=== PATIENT | female | born 1955 | race American Indian/Alaskan Native ===

== ENCOUNTER 2018-08-15 21:23 | Inpatient (IN) | payer OTHER ==
[2018-08-15 22:17] LABS: Basophils # (Auto) 0.1 K/mm3 (0.0-0.1); Basophils % (Auto) 1.1 % (0.0-1.8); Eosinophils # (Auto) 0.1 K/mm3 (0.0-0.4); Eosinophils % (Auto) 2.1 % (0.0-4.3); Hematocrit 39.8 % (30.3-42.9); Hemoglobin 13.2 gm/dl (10.1-14.3); Lymphocytes # (Auto) 2.5 K/mm3 (1.2-5.4); Lymphocytes % (Auto) 41.4 % (13.4-35.0); Mean Corpuscular HGB Conc 33 % (30-34); Mean Corpuscular Volume 88 fl (79-97); Monocytes # (Auto) 0.4 K/mm3 (0.0-0.8); Monocytes % (Auto) 6.8 % (0.0-7.3); Platelet Count 310 K/mm3 (140-440); Red Blood Count 4.51 M/mm3 (3.65-5.03); Red Cell Distribution Width 15.5 % (13.2-15.2)
[2018-08-15 22:30] LABS: BUN/Creatinine Ratio 21; Blood Urea Nitrogen 15 mg/dL (7-17); Calcium 9.9 mg/dL (8.4-10.2); Hemolysis Index 5
--- NOTE | 2018-08-15 23:34 | XRay Report ---
PROCEDURE: XR CHEST ROUTINE 2V TECHNIQUE: PA and lateral chest radiographs were obtained. HISTORY: Chest Pain COMPARISONS: None. FINDINGS: Heart: Normal. Mediastinum/Vessels: Normal. Lungs/Pleural space: Normal. Bony thorax: No acute osseous abnormality. IMPRESSION: Normal examination. This document is electronically signed by Rodney Crowell MD., August 15 2018 11:31:50 PM ET
[2018-08-16] MEDS ORDERED: NACL 0.9% 500 ML 500 ML IV ONE (00:53)
--- NOTE | 2018-08-16 00:53 | Emergency Department Report ---
ED Neuro Deficit HPI - General Chief Complaint: Chest Pain Stated Complaint: DIZZY/STUMBLING ALL DAY/CHEST PAIN Time Seen by Provider: 08/16/18 00:32 Source: patient, RN notes reviewed Mode of arrival: Ambulatory Limitations: No Limitations - History of Present Illness Initial Comments: This is a pleasant 63-year-old female who is not known to this provider previously. She has a history of hypertension and hysterectomy. Primary care physician: Lucy Norwood It is currently 1:20 AM Friday morning. Patient presents with a complaint of waking up, yesterday, Friday morning, with a complaint of dizziness and unsteady gait. She first noticed these at 10:00 AM on Friday. The symptoms constant, worsens with physical exertion, decreases with rest and sitting down. She reports her last known well time is Friday evening upon going to sleep. The patient also reports resolved binocular blurry vision, irregularity, now resolved, which started at 3:00 PM on the preceding day. She also reports central chest pressure, which radiates to her left upper extremity, which she has not had in the past. She denies severe headache, neck pain, abdominal pain, lower extremity pain, weakness, numbness. She denies bladder or bowel retention, incontinence, hematemesis, bright red blood per rectum. She denies pulmonary embolus, DVT risk factors. -: Sudden Location: ataxia Presenting Symptoms: Absent: Weak/Paralyzed One Side, Sudden, Severe Headache, Blurred/Loss of Vision, Facial Droop/Numbness, Unable to Speak Clearly, Altered Mental Status History of same: No Place: home Severity: moderate Quality: other Improves With: other Worsens With: other On Anticoagulants: No Associated Symptoms: chest pain, nausea/vomiting, vertigo - Related Data Allergies/Adverse Reactions: Allergies Allergy/AdvReac Type Severity Reaction Status Date / Time latex Allergy Hives Verified 08/15/18 21:25 ED Review of Systems ROS: Stated complaint: DIZZY/STUMBLING ALL DAY/CHEST PAIN Other details as noted in HPI Constitutional: malaise. denies: fever, weakness Eyes: vision change ENT: denies: epistaxis Respiratory: denies: cough Cardiovascular: chest pain Gastrointestinal: nausea. denies: vomiting Genitourinary: denies: dysuria Musculoskeletal: denies: back pain, arthralgia, myalgia Neurological: abnormal gait, vertigo. denies: headache, weakness, numbness, paresthesias, confusion Psychiatric: anxiety ED Past Medical Hx - Past Medical History Previous Medical History?: Yes Hx Hypertension: Yes - Surgical History Additional Surgical History: hysterectomy - Social History Smoking Status: Never Smoker Substance Use Type: None ED Neuro Physical Exam - General Limitations: No Limitations General appearance: alert, in no apparent distress Suspected Stroke: Yes - Head Head exam: Present: atraumatic, normocephalic - Eye Eye exam: Present: normal appearance, PERRL, EOMI, other (visual acuity intact to finger counting, color perception, reading at a close distance). Absent: nystagmus - ENT ENT exam: Present: normal exam, normal orophraynx, mucous membranes moist, normal external ear exam - Neck Neck exam: Present: normal inspection, full ROM. Absent: tenderness, meningismus - Respiratory Respiratory exam: Present: normal lung sounds bilaterally. Absent: respiratory distress - Cardiovascular Cardiovascular Exam: Present: regular rate, normal rhythm, normal heart sounds. Absent: bradycardia, tachycardia, irregular rhythm, systolic murmur, diastolic murmur, rubs, gallop - GI/Abdominal GI/Abdominal exam: Present: soft. Absent: distended, tenderness, guarding, rebound, rigid, pulsatile mass - Extremities Exam Extremities exam: Present: normal inspection, full ROM, other (2+ pulses noted in the bilateral upper, lower extremities. Compartments soft. No long bony tenderness. The pelvis is stable.). Absent: pedal edema, joint swelling, calf tenderness - Back Exam Back exam: Present: normal inspection, full ROM. Absent: tenderness, CVA tenderness (R), paraspinal tenderness, vertebral tenderness - Neurological Exam Neurological exam: Present: alert (there is no pass pointing. There is normal [id number].), oriented X3, CN II-XII intact, abnormal gait (walks with a broad-based gait. Positive Romberg examination. Unable to perform tandem examination, gait.), other (Extraocular movements intact. Tongue midline. No facial droop. Facial sensation intact to light touch in the V1, V2, V3 distribution bilaterally. 5 and 5 strength in 4 extremities.. Sensation is intact to light touch in 4 extremities.). Absent: motor sensory deficit - NIHSS Assessment Interval: Baseline 1a. Level of Consciousness: alert/keenly responsive 1b. LOC Questions: answers both correctly 1c. LOC Commands: performs tasks correctly 2. Best Gaze: normal 3. Visual: no visual loss 4. Facial Palsy: normal symmetrical movement 5b. Motor Arm Right: no drift 5a. Motor Arm Left: no drift 6a. Motor Leg Left: no drift 6b. Motor Leg Right: no drift 7. Limb Ataxia: absent 8. Sensory: normal 9. Best Language: no aphasia 10. Dysarthria: normal 11. Extinction/Inattention: no abnormality Total Score: 0 Stroke Severity: No Stroke Symptoms - Psychiatric Psychiatric exam: Present: normal affect, normal mood - Skin Skin exam: Present: warm, dry, intact, normal color. Absent: rash ED Course Vital Signs 08/15/18 08/16/18 08/16/18 21:36 00:57 01:16 Temperature 98.7 F Pulse Rate 84 87 91 H Respiratory 16 19 13 Rate Blood Pressure Blood Pressure 160/95 [Right] O2 Sat by Pulse 100 Oximetry 08/16/18 08/16/18 01:30 01:45 Temperature Pulse Rate 81 82 Respiratory 11 L 13 Rate Blood Pressure 151/88 153/90 Blood Pressure [Right] O2 Sat by Pulse Oximetry - Reevaluation(s) Reevaluation #1: 08/16/18 01:22 Differential diagnosis, including but not limited to: Stroke, ischemic versus hemorrhagic, aortic dissection, acute coronary syndrome, GERD, gastritis, hiatal hernia Assessment and plan: 63-year-old female who presents with wake-up neurologic symptoms, therefore not a TPA candidate. However, patient is presenting within the 24-hour window of waking up at symptoms, and we will therefore manage her as a code stroke. An emergent CT scan of the brain, and angiogram of the head and neck have been ordered. I doubt aortic disease as the patient does not have significant hypertension, and has equal pulses in her upper, lower extremities, and also has an unremarkable x-ray of the chest. Nevertheless, I have requested that the electrophysiology technologist scan from the proximal aorta, as part of protocol for the angiogram of the neck. The patient endorses no abdominal pain, no back pain, and no extremity complaints at this time, with the exception of her left upper extremity pain. We will reassess after her total point have resulted. 08/16/18 01:43 Reevaluation #2: 08/16/18 01:[address] scan of the brain negative for acute disease. Awaiting angiogram interpretation. Reevaluation #3: 08/16/18 04:[address] angiogram of the head and neck is negative for acute disease. Patient noted to be walking with assistance. Recommended admission to the hospital, for presumed subacute stroke evaluation and chest pain risk stratification. The patient is amenable to this plan of care. The Hospital physician, Dr. Schuler, has accepted the patient to the medical service. - Lab Data Result diagrams: 08/15/18 21:53 08/15/18 21:53 Lab Results 08/15/18 08/15/18 Range/Units 21:53 21:53 WBC 6.0 (4.5-11.0) K/mm3 RBC 4.51 (3.65-5.03) M/mm3 Hgb 13.2 (10.1-14.3) gm/dl Hct 39.8 (30.3-42.9) % MCV 88 (79-97) fl MCH 29 (28-32) pg MCHC 33 (30-34) % RDW 15.5 H (13.2-15.2) % Plt Count 310 (140-440) K/mm3 Lymph % (Auto) 41.4 H (13.4-35.0) % [place] % (Auto) 6.8 (0.0-7.3) % Eos % (Auto) 2.1 (0.0-4.3) % Baso % (Auto) 1.1 (0.0-1.8) % Lymph # 2.5 (1.2-5.4) K/mm3 [place] # 0.4 (0.0-0.8) K/mm3 Eos # 0.1 (0.0-0.4) K/mm3 Baso # 0.1 (0.0-0.1) K/mm3 Seg Neutrophils % 48.6 (40.0-70.0) % Seg Neutrophils # 2.9 (1.8-7.7) K/mm3 Sodium 141 (137-145) mmol/L Potassium 4.3 (3.6-5.0) mmol/L Chloride 102.6 (98-107) mmol/L Carbon Dioxide 28 (22-30) mmol/L Anion Gap 15 mmol/L BUN 15 (7-17) mg/dL Creatinine 0.7 (0.7-1.2) mg/dL Estimated GFR > 60 ml/min BUN/Creatinine Ratio 21 % Glucose 110 H (65-100) mg/dL Calcium 9.9 (8.4-10.2) mg/dL Troponin T < 0.010 (0.00-0.029) ng/mL Vital Signs 08/15/18 08/16/18 08/16/18 21:36 00:57 01:16 Temperature 98.7 F Pulse Rate 84 87 91 H Respiratory 16 19 13 Rate Blood Pressure 160/95 [Right] O2 Sat by Pulse 100 Oximetry - EKG Data -: EKG Interpreted by [facility] EKG shows normal: sinus rhythm Rate: normal When compared to previous EKG there are: previous EKG unavailable 08/16/18 01:24 Sinus rhythm, 86 bpm, normal axis, normal intervals, left ventricular hypertrophy, atrial enlargement, nonspecific T-wave abnormalities, abnormal EKG, not consistent with ST elevation myocardial infarction. - Radiology Data Radiology results: report reviewed, image reviewed - Core Measures Measure Exclusions: not indicated - Thrombolytic Inclusion/Exclusion Thrombolytic Exclusion Criteria: Onset of Symptoms Unknown Critical care attestation.: If time is entered above; I have spent that time in minutes in the direct care of this critically ill patient, excluding procedure time. ED Disposition Clinical Impression: Ataxia, Chest pain Disposition: OP ADMIT IP TO THIS HOSP Is pt being admited?: Yes Does the pt Need Aspirin: Yes Condition: Stable Instructions: Chest Pain (ED) Referrals: PRIMARY CARE, [Primary Care Provider] - 3-5 Days
--- NOTE | 2018-08-16 01:31 | Cat Scan Report ---
PROCEDURE: CT HEAD/BRAIN WO CON TECHNIQUE: Computerized tomography of the head was performed without contrast material. CT DOSE LENGTH PRODUCT: mGycm HISTORY: cva ataxia, cp COMPARISONS: None . FINDINGS: Skull and scalp: Normal . Paranasal sinuses: Normal . Ventricles and subarachnoid spaces: Normal . Cerebrum: No evidence of hemorrhage, acute infarction or mass . Cerebellum and brainstem: No evidence of hemorrhage, acute infarction or mass . Vasculature: Normal . IMPRESSION: Normal Examination . Dr. Alfonso was notified by telephone at 1:30 AM. This document is electronically signed by Rodney Crowell MD., August 16 2018 01:29:20 AM ET
--- NOTE | 2018-08-16 03:40 | Cat Scan Report ---
PROCEDURE: CT ANGIO HEAD TECHNIQUE: Computerized tomographic angiography of the head was performed after the IV injection of iodinated nonionic contrast including image processing. The image data was postprocessed using 2-dim ensional multiplanar reformatted (MPR) and 3-dimensional (MIP and/or volume rendered) techniques. CT DOSE LENGTH PRODUCT: mGycm HISTORY: cva ataxia, cp COMPARISONS: None . FINDINGS: Cerebrum: No evidence of hemorrhage, acute ischemia or mass . Cerebellum: No evidence of hemorrhage, acute ischemia or mass . Subarachnoid spaces and ventricles: Normal . Intracranial vessels: Carotid siphon: Normal . Anterior cerebral: Normal . Middle cerebral: Normal . Posterior cerebral: Normal . Vertebral arteries including basilar: Normal . Aneurysms: None . Dural sinuses: Normal. IMPRESSION: Normal Examination . This document is electronically signed by Rodney Crowell MD., August 16 2018 03:37:27 AM ET
--- NOTE | 2018-08-16 03:42 | Cat Scan Report ---
PROCEDURE: CT ANGIO NECK TECHNIQUE: Computerized tomographic angiography of the neck was performed after the IV injection of iodinated nonionic contrast including image processing. The image data was postprocessed using 2-dime nsional multiplanar reformatted (MPR) and 3-dimensional (MIP and/or volume rendered) techniques. CT DOSE LENGTH PRODUCT: mGycm HISTORY: cva ataxia, cp COMPARISONS: None . Note: Assessment of carotid artery stenosis is based on measurement of the distal internal carotid a rtery diameter as the denominator for stenosis calculations and the [place] Symptomatic Caroti d Endarterectomy Trial (NASCET) stenosis criteria. FINDINGS: Sinuses: Normal . Non vascular cervical structures: No significant abnormality . Aortic arch: Normal . Right carotid artery: Normal . Left carotid artery: Normal . Vertebral arteries: Normal . IMPRESSION: Normal Examination . This document is electronically signed by Rodney Crowell MD., August 16 2018 03:39:52 AM ET
[2018-08-16] MEDS ORDERED: BABY ASPIRIN PO ONE (04:21)
[2018-08-16] MEDS ORDERED: SODIUM CHLORIDE FLUSH SYRINGE 10 ML IV PRN (05:00)
[2018-08-16] MEDS ORDERED: ZOFRAN IV PRN (05:00)
[2018-08-16] MEDS ORDERED: MILK OF MAGNESIA PO PRN (05:00)
[2018-08-16] MEDS ORDERED: DULCOLAX PR PRN (05:00)
[2018-08-16] MEDS ORDERED: TYLENOL PO PRN (05:00)
--- NOTE | 2018-08-16 05:20 | History and Physical Report ---
History of Present Illness Date of examination: 08/16/18 History of present illness: 63-year-old woman with a history of hypertension comes emergency room because she was off balance since yesterday morning. Also complaining of feeling dizzy with Neurontin in the day, and having blurred vision. Also complaining of chest and epigastric area, described as a pressure-like sensation, constant, radiating to the left arm, intensity 5/10, cannot identify exacerbating or relieving factors. Admits to nausea, shortness breath, diaphoresis, no palpitation. At this stress test 2 years ago Review of systems Constitutional: no weight loss, chills, fever Ears, eyes, nose, mouth and throat: no nasal congestion, no nasal discharge, no sinus pressure, no vision change, no red eye. Neck: No neck pain or rigidity. Cardiovascular: no palpitations, +chest pain Respiratory: no cough, shortness of breath Gastrointestinal: no hematochezia, abdominal pain Genitourinary : no frequency , no hematuria Musculoskeletal: no joint swelling or muscle ache Integumentary: no rash, no pruritis Neurological: no parathesias, no focal weakness Endocrine: no cold or heat intolerance, no polyuria or polydipsia Hematologic/Lymphatic: no easy bruising, no easy bleeding, no gland swelling Allergic/Immunologic: no urticaria, no angioedema. PAST MEDICAL HISTORY:hypertension PAST SURGICAL HISTORY: Hysterectomy SOCIAL HISTORY: Denies alcohol, drugs, tobacco FAMILY HISTORY: Hypertension Medications and Allergies Allergies Allergy/AdvReac Type Severity Reaction Status Date / Time latex Allergy Hives Verified 08/15/18 21:25 Active Meds: Active Medications Acetaminophen (Tylenol) 650 mg PO Q4H PRN PRN Reason: Pain, Mild (1-3) Aspirin (Aspirin) 325 mg PO QDAY SHASHI Bisacodyl (Dulcolax) 10 mg WI QDAY PRN PRN Reason: Constipation Enoxaparin Sodium (Lovenox) 40 mg SUB-Q QDAY SHASHI Magnesium Hydroxide (Milk Of Magnesia) 30 ml PO Q4H PRN PRN Reason: Constipation Ondansetron HCl (Zofran) 4 mg IV Q8H PRN PRN Reason: Nausea And Vomiting Pravastatin Sodium (Pravachol) 20 mg PO QHS SHASHI Sodium Chloride (Sodium Chloride Flush Syringe 10 Ml) 10 ml IV PRN PRN PRN Reason: LINE FLUSH Exam - Physical Exam Narrative exam: General Apperance: The patient lying in bed, breathing comfortable HEENT: Normocephalic, atraumatic. Pupils equally round and reactive to light, EOMI, no sclericterus or JVD or thyromegaly or nodule. , no carotid bruit, mucous membranes moist, no exudate or erythema Heart: S1-S2, regular is rhythm Lungs: Clear to auscultation bilaterally, breathing comfortable Abdomen: Positive bowel sounds, soft, nontender, nondistended, no organomegaly Extremities: No edema cyanosis clubbing Skin: no rash, nodule, warm and dry Neuro: cranial nerves 2-12 intact, speech is fluent, motor/sensory intact. Ataxic gait - Constitutional Vitals: Temp Pulse Resp BP Pulse Ox 98.7 F 83 13 153/90 100 08/15/18 21:36 08/16/18 03:45 08/16/18 03:45 08/16/18 03:45 08/15/18 21:36 Results - Labs CBC & Chem 7: 08/15/18 21:53 08/15/18 21:53 Labs: Abnormal lab results 08/15/18 08/15/18 Range/Units 21:53 21:53 RDW 15.5 H (13.2-15.2) % Lymph % (Auto) 41.4 H (13.4-35.0) % Glucose 110 H (65-100) mg/dL - Imaging and Cardiology CT Scan - head: report reviewed Assessment and Plan CTA head and neck reviewed Assessment CVA Chest pain Hypertension Plan Admit to medicine Obtain MRI of the head, Echo Do neuro checks, consult neurology, PT, OT Check cardiac enzymes, obtain stress test IV hydralazine as needed for blood pressure control Start aspirin, statin, DVT prophylaxis
[2018-08-16] MEDS ORDERED: APRESOLINE IV PRN (05:21)
[2018-08-16 06:36] LABS: Creatine Kinase MB 1.1 ng/mL (0.0-4.0)
--- NOTE | 2018-08-16 10:18 | Progress Note ---
Subjective Date of service: 08/16/18 Interval history: went over the imaging studes and the CT of brain is normal and the CTA of the neck/ head is negative thre is no imaging evidence of stroke hx of HTN is more an issue advise ECHO check MRI lab's reviewed look good will follow up Thanks Objective - Vital Sign Vital Signs - 12hr 08/15/18 08/15/18 08/16/18 21:36 23:28 00:57 Temperature 98.7 F Pulse Rate 84 87 Respiratory 16 18 19 Rate Blood Pressure Blood Pressure 160/95 [Right] O2 Sat by Pulse 100 100 Oximetry 08/16/18 08/16/18 08/16/18 01:16 01:30 01:45 Temperature Pulse Rate 91 H 81 82 Respiratory 13 11 L 13 Rate Blood Pressure 151/88 153/90 Blood Pressure [Right] O2 Sat by Pulse Oximetry 08/16/18 08/16/18 08/16/18 03:45 06:03 06:36 Temperature 98.1 F Pulse Rate 83 82 76 Respiratory 13 18 16 Rate Blood Pressure 153/90 156/86 Blood Pressure 146/83 [Right] O2 Sat by Pulse 100 99 Oximetry 08/16/18 08/16/18 09:34 09:36 Temperature 98.6 F Pulse Rate 80 Respiratory 18 Rate Blood Pressure 134/83 Blood Pressure [Right] O2 Sat by Pulse 97 Oximetry - Laboratory Findings CBC and BMP: 08/15/18 21:53 08/15/18 21:53 Abnormal Lab Findings: Abnormal Labs 08/15/18 08/15/18 21:53 21:53 RDW 15.5 H Lymph % (Auto) 41.4 H Glucose 110 H
[2018-08-16] MEDS: LOVENOX SUB-Q SCH (11:22)
[2018-08-16] MEDS: ASPIRIN PO SCH (11:23)
[2018-08-16 11:27] LABS: Creatine Kinase MB 1.1 ng/mL (0.0-4.0)
--- NOTE | 2018-08-16 11:34 | Event Note ---
Date: 08/16/18 patient seen and examined. 63-year-old woman with a history of hypertension comes emergency room because she was off balance since yesterday morning. Will cont current Mx and plan as dictated in h and p
[2018-08-16] MEDS ORDERED: PRAVACHOL PO SCH ×2 (22:00)
[2018-08-17 06:28] LABS: Chol/HDL Ratio 2.77 %
[2018-08-17] MEDS ORDERED: LEXISCAN IV ONE ×2 (09:21)
[2018-08-17] MEDS ORDERED: ATIVAN IV PRN (11:05)
--- NOTE | 2018-08-17 13:42 | Magnetic Resonance Report ---
MRI BRAIN WITHOUT CONTRAST: 08/17/18 CLINICAL: Stroke. COMPARISON: CT head 08/16/18 TECHNIQUE: Axial diffusion, T1, T2, gradient echo T2*, coronal and axial FLAIR and sagittal T1 sequences on a 1.5 Kristy magnet. FINDINGS: Normal ventricles and sulci. No restricted diffusion. A few tiny focal right frontal white matter hyperintensities on FLAIR and T2. No mass or mass effect. No hemorrhage, edema or extra-axial collection. No cerebral microbleeds on the gradient echo sequence. Normal pituitary and optic chiasm. The brainstem and cerebellum are normal. Intact vascular flow voids. Normal sinuses. The orbits, and soft tissues are normal. Normal calvarium and skull base. IMPRESSION: No evidence of acute/subacute infarct or hemorrhage. Nonspecific multifocal right frontal lobe white matter hyperintensities on FLAIR and T2.
--- NOTE | 2018-08-17 15:28 | Discharge Summary ---
Providers - Providers Date of Admission: 08/16/18 05:01 Date of discharge: 08/17/18 Attending physician: KEVIN FORBES 08/16/18 Consult to Physician [CONS] Routine Comment: Consulting Provider: BECCA BHARDWAJ Physician Instructions: Reason For Exam: cva 08/16/18 05:01 Occupational Therapy Evaluate and Treat [CONS] Routine Comment: Reason For Exam: Neuro deficits Physical Therapy Evaluation and Treat [CONS] Routine Comment: Reason For Exam: Neuro deficits Primary care physician: [facility]ER Hospitalization Reason for admission: dizziness Condition: Stable Pertinent studies: CT head MRI brain Stress test 2d echo CTA head/neck Hospital course: 63-year-old woman with a history of hypertension came to emergency room with c/o off balance for one day. She also complained of feeling dizzy and having blurred vision. She also complained of pain at the chest and epigastric area, described as a pressure-like sensation, constant, radiating to the left arm, intensity 5/10. Patient was then admitted to hospital for possible stroke and chest pain workup. Her stroke workup was negative, stress test was negative. She was then placed on antivert as needed for vertigo. She was also cleared for discharge by physical therapy. She was then discharge home in stable condition. Discharge diagnosis: Dizziness vs vertigo likely due to BPPV CVA, ruled out with all negative work up (CT head/MRI brain was negative for acute CVA) Chest pain, likely from GERD, stress test negative Hypertension, stable Disposition: DC-01 TO HOME OR SELFCARE Time spent for discharge: 34 minutes Core Measure Documentation - Palliative Care Palliative Care/ Comfort Measures: Not Applicable - Core Measures Any of the following diagnoses?: none Exam - Constitutional Vitals: Temp Pulse Resp BP Pulse Ox 98.1 F 116 H 14 150/88 98 08/17/18 04:15 08/17/18 10:07 08/17/18 04:15 08/17/18 10:07 08/17/18 04:15 General appearance: Present: no acute distress, obese - EENT Eyes: Present: PERRL ENT: hearing intact, clear oral mucosa - Neck Neck: Present: supple, normal ROM - Respiratory Respiratory effort: normal Respiratory: bilateral: CTA - Cardiovascular Heart Sounds: Present: S1 & S2. Absent: rub, click - Extremities Extremities: pulses symmetrical, No edema Peripheral Pulses: within normal limits - Abdominal General gastrointestinal: Present: soft, non-tender, non-distended, normal bowel sounds - Integumentary Integumentary: Present: clear, warm, dry - Musculoskeletal Musculoskeletal: gait normal, strength equal bilaterally - Psychiatric Psychiatric: appropriate mood/affect, intact judgment & insight - Neurologic Neurologic: CNII-XII intact, moves all extremities Plan Activity: advance as tolerated Weight Bearing Status: Non-Weight Bearing Diet: low fat, low salt Follow up with: PRIMARY CARE, [Primary Care Provider] - 3-5 Days Prescriptions: Meclizine [Antivert] 25 mg PO TID PRN #14 tablet PRN Reason: Vertigo
[2018-08-17] MEDS: ASPIRIN PO SCH (15:30)
[2018-08-17] MEDS: LOVENOX SUB-Q SCH (15:30)
[2018-08-17 16:18] VITALS: BP 150/77
--- NOTE | 2018-08-18 01:18 | Treadmill Report ---
THALLIUM STRESS TEST LEFT VENTRICLE: Left ventricular chamber size is within normal. Perfusion study demonstrates normal apical thinning, otherwise homogeneous uptake of the tracer in all segments, no significant perfusion defects identified. Gated analysis demonstrates normal left ventricular systolic function, ejection fraction 70%. CONCLUSION: Normal myocardial perfusion study. JOB# [id number] CA/NTS
== END 2018-08-17 19:05 | disposition home or self-care (01) | DRG 392 ==
LOC: ED 21:23 → 4A 08-16 05:01
PROVIDERS: ADMIT Internal Medicine; ATTEND Internal Medicine
DX: K21.9 Gastro-esophageal reflux disease without esophagitis (principal); I10 Essential (primary) hypertension; H81.10 Benign paroxysmal vertigo, unspecified ear; R27.0 Ataxia, unspecified; Z90.710 Acquired absence of both cervix and uterus; Z82.49 Family history of ischemic heart disease and other diseases of the circulatory system
CPT/HCPCS: 36415; 70450; 70496; 70498; 70551; 71046; 78452; 80048; 80061; 82550; 82553; 82962; 84484; 85025; 93005; 93010; 93017; 93306; G0378; A9270-GY; A9502; J1650; J2060; J2785; J7040; Q9967